=== PATIENT | male | born 1965 | race Asian ===

== ENCOUNTER 2017-09-29 02:11 | Inpatient (IN) | payer OTHER ==
[2017-09-29] MEDS: SODIUM CHLORIDE 0.9% 1L BAG IV* (02:32)
[2017-09-29 03:52] LABS: ADD MAN DIFF? NO
[2017-09-29] MEDS: CEFEPIME 2GM/50 ML (PMX) 50 ML IVPB (03:52)
[2017-09-29] MEDS: ACETAMINOPHEN 325 MG TAB PO (03:52)
[2017-09-29 04:02] LABS: ADD UMIC YES; UR ASCORBIC ACID NEGATIVE (NEGATIVE); UR BACTERIA FEW /HPF (NONE SEEN); UR BILIRUBIN (Dip) NEGATIVE (NEGATIVE); UR BLOOD (Dip) 3+ mg/dL (NEGATIVE); UR CLARITY CLEAR (CLEAR); UR COLOR YELLOW (YELLOW); UR GLUCOSE (Dip) NEGATIVE (NEGATIVE); UR KETONES (Dip) NEGATIVE (NEGATIVE); UR LEUKOCYTE ESTERASE (Dip) NEGATIVE Leu/ul (NEGATIVE); UR MUCUS FEW /HPF (NONE SEEN); UR NITRITE (Dip) NEGATIVE (NEGATIVE); UR RBC 11 /HPF (0-5); UR SPECIFIC GRAVITY (Dip) 1.012 (1.003-1.030); UR TOTAL PROTEIN (Dip) NEGATIVE (NEGATIVE); UR UROBILINOGEN (Dip) NEGATIVE (NEGATIVE); UR WBC 1 /HPF (0-5)
[2017-09-29 04:06] LABS: BASOPHILS % 0.2 % (0.0-2.0); EOSINOPHILS % 0.2 % (0.0-7.0); HEMATOCRIT 37.6 % (42.0-52.0); HEMOGLOBIN 11.8 g/dl (14.0-18.0); LYMPHOCYTES # 0.8 10^3/ul (0.8-2.9); LYMPHOCYTES % 6.4 % (15.0-51.0); MEAN CORPUSCULAR HEMOGLOBIN 28.6 pg (29.0-33.0); MEAN CORPUSCULAR HGB CONC 31.4 g/dl (32.0-37.0); MEAN CORPUSCULAR VOLUME 91.3 fl (82.0-101.0); MEAN PLATELET VOLUME 11.8 fl (7.4-10.4); MONOCYTE # 0.9 10^3/ul (0.3-0.9); MONOCYTES % 7.3 % (0.0-11.0); NEUTROPHIL # 10.2 10^3/ul (1.6-7.5); NEUTROPHILS % 85.2 % (39.0-77.0); PLATELET COUNT 152 10^3/UL (140-415); RED BLOOD COUNT 4.12 10^6/ul (4.70-6.10); RED CELL DISTRIBUTION WIDTH 13.4 % (11.5-14.5)
[2017-09-29 04:14] LABS: LACTIC ACID 1.6 mmol/L (0.5-2.0)
[2017-09-29 04:15] LABS: ALANINE AMINOTRANSFERASE 23 IU/L (13-69); ALBUMIN 4.4 g/dl (3.3-4.9); ALBUMIN/GLOBULIN RATIO 1.37; ALKALINE PHOSPHATASE 123 IU/L (42-121); ANION GAP 15 (8-16); ASPARTATE AMINO TRANSFERASE 23 IU/L (15-46); BILIRUBIN,INDIRECT 0.7 mg/dl (0-1.1); BILIRUBIN,TOTAL 0.7 mg/dl (0.2-1.3); BLOOD UREA NITROGEN 41 mg/dl (7-20); CALCIUM 9.8 mg/dl (8.4-10.2); CARBON DIOXIDE 33 mmol/L (21-31); CHLORIDE 98 mmol/L (97-110); CREATININE 1.56 mg/dl (0.61-1.24); GLUCOSE 102 mg/dl (70-220); POTASSIUM 3.8 mmol/L (3.5-5.1); SODIUM 142 mmol/L (135-144); TOTAL PROTEIN 7.6 g/dl (6.1-8.1)
[2017-09-29 04:16] LABS: INR 1.32; PROTIME 16.6 Sec (11.9-14.9); PT RATIO 1.3
[2017-09-29 04:17] LABS: PARTIAL THROMBOPLASTIN TIME 34.8 Sec (25.0-35.0)
[2017-09-29] MEDS: VANCOMYCIN 1 GM (PMX) 250 ML IVPB (04:23)
[2017-09-29 04:27] LABS: TROPONIN-I 0.054 ng/ml (0.00-0.12)
[2017-09-29 06:08] LABS: LACTIC ACID 0.9 mmol/L (0.5-2.0)
[2017-09-29] MEDS: ALLOPURINOL 300 MG TAB PO (06:14)
[2017-09-29] MEDS: COLCHICINE 0.6 MG TAB PO (06:14)
[2017-09-29] MEDS ORDERED: VANCOMYCIN IV PER PHARMACY XX ×3 (07:00→10:15)
[2017-09-29] MEDS ORDERED: NACL 0.9% 3 ML SYG IV (07:00)
[2017-09-29] MEDS ORDERED: INSULIN LISPRO SC ×3 (07:00→10:15)
[2017-09-29] MEDS ORDERED: HYDROCODONE/APAP (5/325) TAB PO (07:00)
[2017-09-29] MEDS ORDERED: ONDANSETRON 4 MG INJ IV (07:00)
[2017-09-29] MEDS ORDERED: ACETAMINOPHEN 325 MG TAB PO (07:00)
[2017-09-29 07:32] LABS: LACTIC ACID 0.8 mmol/L (0.5-2.0)
[2017-09-29] MEDS: INSULIN ASPART [NOVOLOG] 3 ML PEN SC ×4 (08:00→20:27)
[2017-09-29] MEDS ORDERED: GLUCOSE GEL 15 GRAM TUBE PO ×2 (08:30)
[2017-09-29] MEDS ORDERED: GLUCOSE GEL 15 GRAM TUBE BUCCAL (08:30)
[2017-09-29] MEDS ORDERED: GLUCAGON 1 MG INJ IM (08:30)
[2017-09-29] MEDS ORDERED: DEXTROSE 50% 50 ML SYRINGE IV ×2 (08:30)
[2017-09-29] MEDS ORDERED: DOCUSATE SODIUM 100 MG CAP PO (10:00)
[2017-09-29] MEDS ORDERED: NON-FORMULARY/PATIENT OWN MED (Hydrocodone/Acetaminophen (Norco 5-325 Tablet) 1 EACH) PO (10:00)
[2017-09-29] MEDS ORDERED: LACTULOSE 30ML CUP PO (10:00)
[2017-09-29] MEDS ORDERED: ALBUTEROL/IPRATROPIUM (NEB) 3 ML AMP HHN ×2 (10:00→10:15)
[2017-09-29] MEDS ORDERED: BELATACEPT IV ×3 (10:00→10:15)
[2017-09-29] MEDS ORDERED: PIPER-TAZO 3.375 GM IV (PMX) 100 ML IVPB (12:00)
[2017-09-29] MEDS ORDERED: PENDING SANTYL ORDER FOR WOUND CARE XX (12:00)
[2017-09-29] MEDS: PIPER-TAZO 3.375 GM IV (PMX) 100 ML IVPB ×2 (12:11→18:46)
[2017-09-29] MEDS: ENOXAPARIN 30 MG/0.3 ML SYG SC (12:13)
[2017-09-29] MEDS: VANCOMYCIN 1 GM 250 ML IVPB (13:45)
[2017-09-29] MEDS: INSULIN GLARGINE [LANtus] 3 ML PEN SC (15:55)
[2017-09-29] MEDS ORDERED: VANCOMYCIN 1 GM 250 ML IVPB (16:00)
[2017-09-29] MEDS: ALBUTEROL/IPRATROPIUM (NEB) 3 ML AMP HHN ×2 (16:45→20:58)
[2017-09-29] MEDS: BUMETANIDE 1 MG TAB PO (18:46)
[2017-09-29] MEDS: ATORVASTATIN 10 MG TAB PO (20:20)
[2017-09-29] MEDS: MYCOPHENOLATE 250 MG CAP PO (20:20)
[2017-09-29] MEDS: TAMSULOSIN (SR) 0.4 MG CAP PO (20:21)
[2017-09-29] MEDS: VALGANCICLOVIR 450 MG TAB PO (20:27)
[2017-09-30] MEDS: PIPER-TAZO 3.375 GM IV (PMX) 100 ML IVPB ×3 (00:10→12:30)
[2017-09-30] MEDS: ALBUTEROL/IPRATROPIUM (NEB) 3 ML AMP HHN ×6 (00:41→21:16)
[2017-09-30] MEDS: ACCU-CHEK XX (01:52)
[2017-09-30] MEDS: VANCOMYCIN 1 GM 250 ML IVPB ×2 (01:52→13:51)
[2017-09-30] MEDS: BUMETANIDE 1 MG TAB PO ×2 (05:49→18:38)
[2017-09-30] MEDS: INSULIN ASPART [NOVOLOG] 3 ML PEN SC ×5 (08:15→21:04)
[2017-09-30] MEDS: INSULIN GLARGINE [LANtus] 3 ML PEN SC (08:32)
[2017-09-30] MEDS ORDERED: LISINOPRIL 10 MG TAB PO (09:00)
[2017-09-30] MEDS: ENOXAPARIN 30 MG/0.3 ML SYG SC (09:56)
[2017-09-30 10:08] LABS: C-REACTIVE PROTEIN 18.4 mg/dl (0.0-0.9)
[2017-09-30] MEDS: MYCOPHENOLATE 250 MG CAP PO ×2 (10:10→20:57)
[2017-09-30] MEDS: PANTOPRAZOLE (EC) 40 MG TAB PO (10:11)
[2017-09-30] MEDS: COLCHICINE 0.6 MG TAB PO (10:12)
[2017-09-30] MEDS: predniSONE 5 MG TAB PO (10:12)
[2017-09-30] MEDS: ASPIRIN (EC) 81 MG TAB PO (10:13)
[2017-09-30] MEDS: VALGANCICLOVIR 450 MG TAB PO ×2 (10:13→20:56)
[2017-09-30] MEDS: ALLOPURINOL 100 MG TAB PO (10:14)
[2017-09-30 10:26] LABS: ERYTHROCYTE SEDIMENTATION RATE 43 mm/Hr (0-20)
[2017-09-30 12:09] LABS: BLOOD UREA NITROGEN 41 mg/dl (7-20)
[2017-09-30 12:09] LABS: CREATININE 1.65 mg/dl (0.61-1.24)
[2017-09-30 13:31] LABS: ANION GAP 13 (8-16); BLOOD UREA NITROGEN 36 mg/dl (7-20); CALCIUM 9.1 mg/dl (8.4-10.2); CARBON DIOXIDE 32 mmol/L (21-31); CHLORIDE 98 mmol/L (97-110); CREATININE 1.64 mg/dl (0.61-1.24); GLUCOSE 170 mg/dl (70-220); POTASSIUM 3.7 mmol/L (3.5-5.1); SODIUM 139 mmol/L (135-144)
[2017-09-30] MEDS: LINAGLIPTIN 5 MG TABLET PO (15:51)
[2017-09-30] MEDS: DAPTOMYCIN IVPB (15:59)
[2017-09-30] MEDS: SOD CHLORIDE 0.9% IVPB (15:59)
[2017-09-30] MEDS: ATORVASTATIN 10 MG TAB PO (20:57)
[2017-09-30] MEDS: TAMSULOSIN (SR) 0.4 MG CAP PO (20:57)
[2017-09-30] MEDS: CEFEPIME 1GM/50 ML (PMX) 50 ML IVPB (20:59)
[2017-10-01] MEDS: ALBUTEROL/IPRATROPIUM (NEB) 3 ML AMP HHN ×7 (01:05→20:19)
[2017-10-01] MEDS: ACCU-CHEK XX ×2 (02:00→20:36)
[2017-10-01] MEDS: BUMETANIDE 1 MG TAB PO ×2 (05:59→17:20)
[2017-10-01 06:15] LABS: ADD MAN DIFF? NO
[2017-10-01 06:26] LABS: WHITE BLOOD COUNT 8.1 10^3/ul (4.8-10.8)
[2017-10-01 06:26] LABS: BASOPHILS % 0.1 % (0.0-2.0); EOSINOPHILS # 0.2 10^3/ul (0.0-0.5); EOSINOPHILS % 2.1 % (0.0-7.0); HEMATOCRIT 34.2 % (42.0-52.0); HEMOGLOBIN 10.6 g/dl (14.0-18.0); LYMPHOCYTES # 1.2 10^3/ul (0.8-2.9); LYMPHOCYTES % 14.5 % (15.0-51.0); MEAN CORPUSCULAR HEMOGLOBIN 28.7 pg (29.0-33.0); MEAN CORPUSCULAR VOLUME 92.7 fl (82.0-101.0); MEAN PLATELET VOLUME 11.4 fl (7.4-10.4); MONOCYTE # 1.1 10^3/ul (0.3-0.9); MONOCYTES % 13.4 % (0.0-11.0); NEUTROPHIL # 5.7 10^3/ul (1.6-7.5); NEUTROPHILS % 69.5 % (39.0-77.0); PLATELET COUNT 117 10^3/UL (140-415); RED BLOOD COUNT 3.69 10^6/ul (4.70-6.10); RED CELL DISTRIBUTION WIDTH 13.6 % (11.5-14.5)
[2017-10-01 06:43] LABS: INR 1.41; PROTIME 17.5 Sec (11.9-14.9); PT RATIO 1.4
[2017-10-01 06:44] LABS: PARTIAL THROMBOPLASTIN TIME 46.2 Sec (25.0-35.0)
[2017-10-01 06:58] LABS: CREATINE KINASE 66 IU/L (23-200)
[2017-10-01 07:01] LABS: MAGNESIUM 1.9 mg/dl (1.7-2.5)
[2017-10-01 07:01] LABS: PHOSPHORUS 3.3 mg/dl (2.5-4.9)
[2017-10-01 07:04] LABS: ALANINE AMINOTRANSFERASE 25 IU/L (13-69); ALBUMIN 3.7 g/dl (3.3-4.9); ALBUMIN/GLOBULIN RATIO 1.23; ALKALINE PHOSPHATASE 92 IU/L (42-121); ANION GAP 16 (8-16); ASPARTATE AMINO TRANSFERASE 16 IU/L (15-46); BILIRUBIN,INDIRECT 0.7 mg/dl (0-1.1); BILIRUBIN,TOTAL 0.7 mg/dl (0.2-1.3); BLOOD UREA NITROGEN 35 mg/dl (7-20); CALCIUM 9.2 mg/dl (8.4-10.2); CARBON DIOXIDE 29 mmol/L (21-31); CHLORIDE 99 mmol/L (97-110); CREATININE 1.71 mg/dl (0.61-1.24); GLUCOSE 169 mg/dl (70-220); POTASSIUM 3.4 mmol/L (3.5-5.1); SODIUM 141 mmol/L (135-144); TOTAL PROTEIN 6.7 g/dl (6.1-8.1)
[2017-10-01] MEDS: LINAGLIPTIN 5 MG TABLET PO (08:15)
[2017-10-01] MEDS: ALLOPURINOL 100 MG TAB PO (08:15)
[2017-10-01] MEDS: COLCHICINE 0.6 MG TAB PO (08:15)
[2017-10-01] MEDS: PANTOPRAZOLE (EC) 40 MG TAB PO (08:15)
[2017-10-01] MEDS: ASPIRIN (EC) 81 MG TAB PO (08:15)
[2017-10-01] MEDS: predniSONE 5 MG TAB PO (08:15)
[2017-10-01] MEDS: VALGANCICLOVIR 450 MG TAB PO (08:16)
[2017-10-01] MEDS: MYCOPHENOLATE 250 MG CAP PO ×2 (08:16→20:35)
[2017-10-01] MEDS: INSULIN ASPART [NOVOLOG] 3 ML PEN SC ×7 (08:20→20:35)
[2017-10-01] MEDS: INSULIN GLARGINE [LANtus] 3 ML PEN SC (08:21)
[2017-10-01] MEDS: CEFEPIME 1GM/50 ML (PMX) 50 ML IVPB ×2 (08:24→20:34)
[2017-10-01] MEDS: ENOXAPARIN 30 MG/0.3 ML SYG SC (09:01)
[2017-10-01 11:18] LABS: CREATININE,URINE RANDOM 75.15 mg/dl (20-370); CREATININE,URINE RANDOM 76.42 mg/dl (20-370); PROTEIN/CREAT RATIO 0.22 RATIO
[2017-10-01] MEDS ORDERED: FLUCONAZOLE 100 MG TAB PO (11:30)
[2017-10-01] MEDS: POTASSIUM CHLORIDE (SR) 20 MEQ TAB PO (11:48)
[2017-10-01] MEDS: FLUCONAZOLE 100 MG TAB PO (11:49)
[2017-10-01] MEDS: SOD CHLORIDE 0.9% IVPB (13:44)
[2017-10-01] MEDS: DAPTOMYCIN IVPB (13:44)
[2017-10-01] MEDS: TAMSULOSIN (SR) 0.4 MG CAP PO (20:35)
[2017-10-01] MEDS: ATORVASTATIN 10 MG TAB PO (20:35)
[2017-10-02] MEDS: ALBUTEROL/IPRATROPIUM (NEB) 3 ML AMP HHN ×8 (00:44→22:58)
[2017-10-02] MEDS: BUMETANIDE 1 MG TAB PO ×2 (06:05→17:14)
[2017-10-02 06:32] LABS: ANION GAP 16 (8-16); BLOOD UREA NITROGEN 31 mg/dl (7-20); CALCIUM 9.6 mg/dl (8.4-10.2); CARBON DIOXIDE 29 mmol/L (21-31); CHLORIDE 99 mmol/L (97-110); GLUCOSE 235 mg/dl (70-220); POTASSIUM 3.7 mmol/L (3.5-5.1); SODIUM 140 mmol/L (135-144)
[2017-10-02 06:42] LABS: ADD MAN DIFF? NO
[2017-10-02] MEDS: INSULIN ASPART [NOVOLOG] 3 ML PEN SC ×7 (07:59→21:03)
[2017-10-02] MEDS: INSULIN GLARGINE [LANtus] 3 ML PEN SC (08:00)
[2017-10-02] MEDS: COLCHICINE 0.6 MG TAB PO (08:01)
[2017-10-02] MEDS: ASPIRIN (EC) 81 MG TAB PO (08:01)
[2017-10-02] MEDS: CEFEPIME 1GM/50 ML (PMX) 50 ML IVPB ×2 (08:01→20:52)
[2017-10-02] MEDS: MYCOPHENOLATE 250 MG CAP PO ×2 (08:01→20:50)
[2017-10-02] MEDS: ALLOPURINOL 100 MG TAB PO (08:02)
[2017-10-02] MEDS: FLUCONAZOLE 100 MG TAB PO (08:02)
[2017-10-02] MEDS: LINAGLIPTIN 5 MG TABLET PO (08:02)
[2017-10-02] MEDS: predniSONE 5 MG TAB PO (08:02)
[2017-10-02] MEDS: PANTOPRAZOLE (EC) 40 MG TAB PO (08:02)
[2017-10-02] MEDS: ENOXAPARIN 30 MG/0.3 ML SYG SC (08:04)
[2017-10-02 09:27] LABS: WHITE BLOOD COUNT 7.7 10^3/ul (4.8-10.8)
[2017-10-02 09:27] LABS: BASOPHILS % 0.3 % (0.0-2.0); EOSINOPHILS # 0.2 10^3/ul (0.0-0.5); EOSINOPHILS % 2.6 % (0.0-7.0); HEMATOCRIT 37.3 % (42.0-52.0); HEMOGLOBIN 11.5 g/dl (14.0-18.0); LYMPHOCYTES # 1.3 10^3/ul (0.8-2.9); LYMPHOCYTES % 17.2 % (15.0-51.0); MEAN CORPUSCULAR HEMOGLOBIN 28.5 pg (29.0-33.0); MEAN CORPUSCULAR HGB CONC 30.8 g/dl (32.0-37.0); MEAN CORPUSCULAR VOLUME 92.6 fl (82.0-101.0); MEAN PLATELET VOLUME 11.9 fl (7.4-10.4); MONOCYTE # 1.1 10^3/ul (0.3-0.9); MONOCYTES % 13.7 % (0.0-11.0); NEUTROPHIL # 5.1 10^3/ul (1.6-7.5); NEUTROPHILS % 65.8 % (39.0-77.0); PLATELET COUNT 142 10^3/UL (140-415); RED BLOOD COUNT 4.03 10^6/ul (4.70-6.10); RED CELL DISTRIBUTION WIDTH 13.6 % (11.5-14.5)
[2017-10-02] MEDS: SOD CHLORIDE 0.9% IVPB (14:11)
[2017-10-02] MEDS: DAPTOMYCIN IVPB (14:11)
[2017-10-02] MEDS: FISH OIL 1,000 MG CAP PO (14:41)
[2017-10-02] MEDS: ATORVASTATIN 10 MG TAB PO (20:51)
[2017-10-02] MEDS: GABAPENTIN 300 MG CAP PO (20:52)
[2017-10-02] MEDS: TAMSULOSIN (SR) 0.4 MG CAP PO (20:52)
[2017-10-03] MEDS: ACCU-CHEK XX (02:00)
[2017-10-03] MEDS: BUMETANIDE 1 MG TAB PO ×2 (05:26→17:22)
[2017-10-03 06:24] LABS: ADD MAN DIFF? NO
[2017-10-03 06:27] LABS: BASOPHILS % 0.4 % (0.0-2.0); EOSINOPHILS # 0.2 10^3/ul (0.0-0.5); HEMATOCRIT 35.2 % (42.0-52.0); LYMPHOCYTES # 1.1 10^3/ul (0.8-2.9); LYMPHOCYTES % 14.9 % (15.0-51.0); MEAN CORPUSCULAR HEMOGLOBIN 28.9 pg (29.0-33.0); MEAN CORPUSCULAR HGB CONC 31.3 g/dl (32.0-37.0); MEAN CORPUSCULAR VOLUME 92.4 fl (82.0-101.0); MEAN PLATELET VOLUME 11.5 fl (7.4-10.4); MONOCYTES % 14.1 % (0.0-11.0); NEUTROPHIL # 4.7 10^3/ul (1.6-7.5); NEUTROPHILS % 66.9 % (39.0-77.0); PLATELET COUNT 146 10^3/UL (140-415); RED BLOOD COUNT 3.81 10^6/ul (4.70-6.10); RED CELL DISTRIBUTION WIDTH 13.5 % (11.5-14.5)
[2017-10-03 07:04] LABS: ANION GAP 22 (8-16); BLOOD UREA NITROGEN 28 mg/dl (7-20); CALCIUM 9.6 mg/dl (8.4-10.2); CARBON DIOXIDE 27 mmol/L (21-31); CHLORIDE 96 mmol/L (97-110); CREATININE 1.35 mg/dl (0.61-1.24); GLUCOSE 165 mg/dl (70-220); POTASSIUM 3.2 mmol/L (3.5-5.1); SODIUM 142 mmol/L (135-144)
[2017-10-03] MEDS: INSULIN ASPART [NOVOLOG] 3 ML PEN SC ×7 (07:45→21:02)
[2017-10-03] MEDS: FISH OIL 1,000 MG CAP PO (08:19)
[2017-10-03] MEDS: INSULIN GLARGINE [LANtus] 3 ML PEN SC (08:19)
[2017-10-03] MEDS: ENOXAPARIN 30 MG/0.3 ML SYG SC (08:19)
[2017-10-03] MEDS: COLCHICINE 0.6 MG TAB PO (08:20)
[2017-10-03] MEDS: PANTOPRAZOLE (EC) 40 MG TAB PO (08:20)
[2017-10-03] MEDS: ALLOPURINOL 100 MG TAB PO (08:20)
[2017-10-03] MEDS: FLUCONAZOLE 100 MG TAB PO (08:20)
[2017-10-03] MEDS: LINAGLIPTIN 5 MG TABLET PO (08:20)
[2017-10-03] MEDS: ASPIRIN (EC) 81 MG TAB PO (08:20)
[2017-10-03] MEDS: predniSONE 5 MG TAB PO (08:21)
[2017-10-03] MEDS: MYCOPHENOLATE 250 MG CAP PO ×2 (08:21→20:49)
[2017-10-03] MEDS: CEFEPIME 1GM/50 ML (PMX) 50 ML IVPB ×2 (08:23→20:51)
[2017-10-03] MEDS: ALBUTEROL/IPRATROPIUM (NEB) 3 ML AMP HHN ×4 (09:04→21:36)
[2017-10-03] MEDS: POTASSIUM CHLORIDE (SR) 20 MEQ TAB PO (10:12)
[2017-10-03] MEDS: SOD CHLORIDE 0.9% IVPB (13:59)
[2017-10-03] MEDS: DAPTOMYCIN IVPB (13:59)
[2017-10-03] MEDS: GABAPENTIN 300 MG CAP PO (20:47)
[2017-10-03] MEDS: ATORVASTATIN 10 MG TAB PO (20:48)
[2017-10-03] MEDS: TAMSULOSIN (SR) 0.4 MG CAP PO (20:48)
[2017-10-04] MEDS: ALBUTEROL/IPRATROPIUM (NEB) 3 ML AMP HHN ×5 (01:00→16:51)
[2017-10-04] MEDS: ACCU-CHEK XX (02:00)
[2017-10-04] MEDS: BUMETANIDE 1 MG TAB PO (05:36)
[2017-10-04 06:21] LABS: ADD MAN DIFF? NO
[2017-10-04 06:43] LABS: WHITE BLOOD COUNT 7.7 10^3/ul (4.8-10.8)
[2017-10-04 06:43] LABS: BASOPHILS % 0.3 % (0.0-2.0); EOSINOPHILS # 0.2 10^3/ul (0.0-0.5); EOSINOPHILS % 2.2 % (0.0-7.0); HEMATOCRIT 35.9 % (42.0-52.0); LYMPHOCYTES # 1.4 10^3/ul (0.8-2.9); LYMPHOCYTES % 17.6 % (15.0-51.0); MEAN CORPUSCULAR HEMOGLOBIN 28.4 pg (29.0-33.0); MEAN CORPUSCULAR HGB CONC 30.6 g/dl (32.0-37.0); MEAN CORPUSCULAR VOLUME 92.5 fl (82.0-101.0); MEAN PLATELET VOLUME 11.6 fl (7.4-10.4); MONOCYTES % 13.2 % (0.0-11.0); NEUTROPHIL # 5.1 10^3/ul (1.6-7.5); NEUTROPHILS % 66.2 % (39.0-77.0); PLATELET COUNT 160 10^3/UL (140-415); RED BLOOD COUNT 3.88 10^6/ul (4.70-6.10); RED CELL DISTRIBUTION WIDTH 13.8 % (11.5-14.5)
[2017-10-04 07:11] LABS: ANION GAP 18 (8-16); BLOOD UREA NITROGEN 31 mg/dl (7-20); CALCIUM 9.6 mg/dl (8.4-10.2); CARBON DIOXIDE 28 mmol/L (21-31); CHLORIDE 99 mmol/L (97-110); CREATININE 1.33 mg/dl (0.61-1.24); GLUCOSE 150 mg/dl (70-220); POTASSIUM 3.4 mmol/L (3.5-5.1); SODIUM 142 mmol/L (135-144)
[2017-10-04] MEDS: INSULIN ASPART [NOVOLOG] 3 ML PEN SC ×4 (08:21→12:42)
[2017-10-04] MEDS: MYCOPHENOLATE 250 MG CAP PO (08:45)
[2017-10-04] MEDS: LINAGLIPTIN 5 MG TABLET PO (08:45)
[2017-10-04] MEDS: predniSONE 5 MG TAB PO (08:46)
[2017-10-04] MEDS: FISH OIL 1,000 MG CAP PO (08:46)
[2017-10-04] MEDS: PANTOPRAZOLE (EC) 40 MG TAB PO (08:46)
[2017-10-04] MEDS: ALLOPURINOL 100 MG TAB PO (08:46)
[2017-10-04] MEDS: COLCHICINE 0.6 MG TAB PO (08:46)
[2017-10-04] MEDS: FLUCONAZOLE 100 MG TAB PO (08:46)
[2017-10-04] MEDS: CEFEPIME 1GM/50 ML (PMX) 50 ML IVPB (08:47)
[2017-10-04] MEDS: ASPIRIN (EC) 81 MG TAB PO (08:47)
[2017-10-04] MEDS: ENOXAPARIN 30 MG/0.3 ML SYG SC (08:55)
[2017-10-04] MEDS: INSULIN GLARGINE [LANtus] 3 ML PEN SC (08:57)
[2017-10-04] MEDS: POTASSIUM CHLORIDE (SR) 20 MEQ TAB PO (12:39)
[2017-10-04] MEDS: DAPTOMYCIN IVPB (14:04)
[2017-10-04] MEDS: SOD CHLORIDE 0.9% IVPB (14:04)
== END 2017-10-04 17:15 | disposition home health service (06) | DRG 871 ==
LOC: E/R 02:11 → MS2 09:40
DX: A41.9 Sepsis, unspecified organism (principal); J96.91 Respiratory failure, unspecified with hypoxia; N17.0 Acute kidney failure with tubular necrosis; L03.115 Cellulitis of right lower limb; Z94.0 Kidney transplant status; B25.8 Other cytomegaloviral diseases; M86.161 Other acute osteomyelitis, right tibia and fibula; E11.22 Type 2 diabetes mellitus with diabetic chronic kidney disease; E11.43 Type 2 diabetes mellitus with diabetic autonomic (poly)neuropathy; N18.3 Chronic kidney disease, stage 3 (moderate); E78.2 Mixed hyperlipidemia; I12.9 Hypertensive chronic kidney disease with stage 1 through stage 4 chronic kidney disease, or unspecified chronic kidney disease; N40.0 Benign prostatic hyperplasia without lower urinary tract symptoms; E03.9 Hypothyroidism, unspecified; I25.10 Atherosclerotic heart disease of native coronary artery without angina pectoris; I87.2 Venous insufficiency (chronic) (peripheral); Z79.4 Long term (current) use of insulin; Z95.1 Presence of aortocoronary bypass graft; Z79.82 Long term (current) use of aspirin
CPT/HCPCS: 36415; 71045; 73721; 74176; 76705; 76775; 80048; 80053; 81001; 81003; 82550; 82565; 82570; 82962; 83036; 83605; 83735; 84100; 84155; 84484; 84520; 85025; 85610; 85651; 85730; 86140; 87040; 87045; 87070; 87086; 87496; 93005; 93306; 93970; 94640; 94664; 96374; 96375; 99285-25

== ENCOUNTER 2018-09-10 13:00 | Emergency (ER) | payer OTHER | END 2018-09-10 16:42 | disposition home or self-care (01) | LOC: FTE 13:00 | DX: R05 Cough (principal); Z79.4 Long term (current) use of insulin; Z79.82 Long term (current) use of aspirin | CPT/HCPCS: 99283 ==

== ENCOUNTER 2019-02-06 16:37 | Emergency (ER) | payer OTHER ==
[2019-02-06] MEDS: morphine 4 MG/ML VIAL IV ×2 (18:59→21:12)
[2019-02-06] MEDS: NITROGLYCERIN 2% 1 GM OINT PKT TD (18:59)
[2019-02-06] MEDS: ONDANSETRON 4 MG INJ IV (18:59)
[2019-02-06] MEDS: ASPIRIN 81 MG TAB PO (18:59)
[2019-02-06] MEDS ORDERED: NITROGLYCERIN (SL) 0.4 MG TAB SL (19:00)
[2019-02-06 19:01] LABS: ADD MAN DIFF? NO
[2019-02-06 19:04] LABS: BASOPHILS % 0.3 % (0.0-2.0); EOSINOPHILS # 0.1 10^3/ul (0.0-0.5); EOSINOPHILS % 0.8 % (0.0-7.0); HEMATOCRIT 46.1 % (42.0-52.0); HEMOGLOBIN 14.9 g/dl (14.0-18.0); LYMPHOCYTES % 16.8 % (15.0-51.0); MEAN CORPUSCULAR HEMOGLOBIN 29.9 pg (29.0-33.0); MEAN CORPUSCULAR HGB CONC 32.3 g/dl (32.0-37.0); MEAN CORPUSCULAR VOLUME 92.4 fl (82.0-101.0); MEAN PLATELET VOLUME 10.7 fl (7.4-10.4); MONOCYTE # 1.2 10^3/ul (0.3-0.9); MONOCYTES % 9.8 % (0.0-11.0); NEUTROPHIL # 8.5 10^3/ul (1.6-7.5); NEUTROPHILS % 70.9 % (39.0-77.0); PLATELET COUNT 218 10^3/UL (140-415); RED BLOOD COUNT 4.99 10^6/ul (4.70-6.10); RED CELL DISTRIBUTION WIDTH 13.1 % (11.5-14.5)
[2019-02-06 19:21] LABS: ALANINE AMINOTRANSFERASE 63 IU/L (13-69); ALBUMIN/GLOBULIN RATIO 1.38; ALKALINE PHOSPHATASE 108 IU/L (42-121); ANION GAP 14 (5-13); ASPARTATE AMINO TRANSFERASE 59 IU/L (15-46); BILIRUBIN,INDIRECT 0.9 mg/dl (0-1.1); BILIRUBIN,TOTAL 0.9 mg/dl (0.2-1.3); BLOOD UREA NITROGEN 41 mg/dl (7-20); CALCIUM 10.8 mg/dl (8.4-10.2); CARBON DIOXIDE 38 mmol/L (21-31); CHLORIDE 84 mmol/L (97-110); CREATININE 1.52 mg/dl (0.61-1.24); Estimated GFR 48 mL/min (>60); GLUCOSE 219 mg/dl (70-220); POTASSIUM 3.2 mmol/L (3.5-5.1); SODIUM 136 mmol/L (135-144); TOTAL PROTEIN 8.6 g/dl (6.1-8.1)
[2019-02-06 19:29] LABS: LIPASE 2506 U/L (23-300)
[2019-02-06 19:32] LABS: TROPONIN-I 0.052 ng/ml (0.000-0.120)
[2019-02-06 19:55] LABS: INR 0.98; PROTIME 13.1 Sec (11.9-14.9)
[2019-02-06 19:56] LABS: PARTIAL THROMBOPLASTIN TIME 26.6 Sec (23.0-35.0)
[2019-02-06] MEDS: HYDROmorphONE 1 MG/ML SYG IV (23:04)
[2019-02-07] MEDS: SOD CHLORIDE 0.9% 1,000 ML IV (00:05)
== END 2019-02-07 02:24 | disposition short-term general hospital (02) ==
LOC: E/R 02-07 02:24
DX: K85.90 Acute pancreatitis without necrosis or infection, unspecified (principal); R07.9 Chest pain, unspecified; E11.9 Type 2 diabetes mellitus without complications; I11.0 Hypertensive heart disease with heart failure; I50.9 Heart failure, unspecified; N18.9 Chronic kidney disease, unspecified; I12.9 Hypertensive chronic kidney disease with stage 1 through stage 4 chronic kidney disease, or unspecified chronic kidney disease; Z94.0 Kidney transplant status; Z79.4 Long term (current) use of insulin; Z79.82 Long term (current) use of aspirin
CPT/HCPCS: 36415; 71045; 76705; 80053; 83690; 84484; 85025; 85610; 85730; 93005; 96374; 96375; 96376; 99285-25